=== PATIENT | female | born 1950 | race Caucasian/White ===

== ENCOUNTER → 2025-08-18 | Outpatient (CLI) | payer OTHER, SELFPAY ==
--- NOTE | 2025-08-18 10:16 | RAD_ITS ---
PROCEDURE: KNEE 3 VIEWS 08/18/2025 REASON FOR EXAM: RIGHT KNEE PAIN TECHNIQUE: Procedure Code: RADPAT Modality: DX Procedure: KNEE 3 VIEWS Laterality: Right COMPARISON: None FINDINGS: Bones: No fracture. No suspicious bone lesion. Joints: Normal alignment. Mild degenerative changes. Effusion: No effusion. Soft tissues: Soft tissues are unremarkable. Other: N/a RAD/Knee 3 Views IMPRESSION: NO EFFUSION ACUTE FRACTURE OR DISLOCATION. Reading Location: [facility]
--- NOTE | 2025-08-18 10:17 | RAD_ITS ---
PROCEDURE: WRIST 2 VIEWS 08/18/2025 REASON FOR EXAM: PAIN, FALL X 3 MONTHS TECHNIQUE: Procedure Code: RADWR2 Modality: DX Procedure: WRIST 2 VIEWS Laterality: Left COMPARISON: None FINDINGS: Bones: No acute fracture or dislocation Joints: Severe radiocarpal degenerative joint space narrowing. There is widening of the scapholunate interval. Mild base of thumb degenerative change. No erosions Soft tissues: Soft tissues are unremarkable. Other: N/a RAD/Wrist 2 Views IMPRESSION: 1. No acute fracture or dislocation. 2. Severe radiocarpal degenerative osteoarthritic change. 3. Significant widening of the scapholunate interval suggests underlying compl ete ligamentous tear/injury. 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 Could obtain a follow-up MRI for further characterization as carol summers. Reading Location: [facility]
== END | disposition home or self-care (01) ==
PROVIDERS: PCP Nurse Practitioner Family
DX: M25.532 Pain in left wrist (principal); M25.561 Pain in right knee
CPT/HCPCS: 73100; 73562

== ENCOUNTER → 2025-11-03 | Outpatient (CLI) | payer OTHER, SELFPAY ==
--- NOTE | 2025-11-03 11:07 | BI_ITS ---
EXAM: SCRN MAMM (CAD)W/ANNA BILAT DATE: 11/03/2025 CLINICAL HISTORY: F, Age 74 y/o , SCREENING TECHNIQUE: Procedure Code: [id number] Modality: MG Procedure: SCRN MAMM (CAD)W/ANNA BILAT COMPARISON: Prior exam(s) were compared FINDINGS: TISSUE DENSITY: The breasts are heterogeneously dense, which may obscure small masses. Bilateral Breast Mammographic Findings: No significant masses, calcifications or other abnormalities are identified. BI/SCRN MAMM (CAD)W/ANNA BILAT IMPRESSION: No mammographic evidence of malignancy. OVERALL FINAL ASSESSMENT BI-RADS 1: NEGATIVE. RECOMMENDATION: Routine annual follow-up in 1 Year Additional Recommendation none A letter with findings and recommendations will be mailed to the patient. Reading Location: [id number]
--- NOTE | 2025-11-03 11:30 | MRI_ITS ---
PROCEDURE: LOWER EXT JOINT ONLY (ROUTINE) 11/03/2025 REASON FOR EXAM: OTHER TEAR OF MEDIAL MENISCUS TECHNIQUE: Procedure Code: MRILEJ Modality: MR Procedure: LOWER EXT JOINT ONLY (ROUTINE) Multiplanar and multisequence images were obtained without IV contrast administration. COMPARISON: COMPARISON : FINDINGS: Menisci: Lateral meniscus intrasubstance degeneration with suspected small tear along the apical aspect of the tibial surface of the anterior body. Longitudinal tear along the tibial surface of the body to posterior horn of the medial meniscus with associated blunting and fraying. No parameniscal cyst. Ligaments and tendons: No cruciate or collateral ligament tear. No iliotibial band abnormality. No medial or lateral patellofemoral ligament/retinaculum tear. Mild patellar and quadriceps tendinosis. Mild popliteus tendinosis. Bones and soft tissues: Moderate effusion. No popliteal cyst. No prepatellar bursitis. Infrapatellar plica. Suprapatellar plica. Mild chondral thinning in the patella with mild periarticular bone edema. Chondral thinning and irregularity with areas to bone near the central trochlear groove, with periarticular bone edema. Chondral thinning and irregularity along both posterior lateral knee articular surfaces, with areas to bone and periarticular bone edema in the posterior lateral femoral condyle. Chondral thinning and irregularity along both medial knee articular surfaces, with areas to bone and periarticular bone edema in the posterior medial femoral condyle. Marginal osseous ridging about the weight-bearing compartments. No infrapatellar fat pad edema. Well-positioned patella. MRI/Lower Ext Joint Only (Routine) IMPRESSION: Both meniscal tears as described. 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 Moderate effusion. Plicae. Tendinosis. Reading Location: [facility]
[2025-11-03 13:15] LABS: AST(SGOT) 22 U/L (<=31); Alanine Aminotransfer ALT/SGPT 24 U/L (<=34); Albumin, Serum 4.1 g/dL (3.4-4.8); Alkaline Phosphatase 70 U/L (35-104); Anion Gap 9 (7-18); BUN 17 mg/dL (4-19); BUN/Creat Ratio 23.4 RATIO (10-20); Calcium,Total 9.4 mg/dL (7.6-11.0); Carbon Dioxide 25.0 mmol/L (20.0-29.0); Chloride 104 mmol/L (96-106); Cholesterol 238 mg/dL (<=200); Free T3 5.0 pg/mL (2.18-3.98); Globulin 2.7 g/dL (2.2-4.2); Glucose 104 mg/dL (70-99); Low Density Lipoprotein Calc. 122 mg/dL; Potassium 4.3 mmol/L (3.5-5.1); Triglycerides 268 mg/dL; Very Low Density Lipoprotein 54 mg/dL (5-40); Vitamin D,25 Hydroxy 82.2 ng/mL (30-100); cholesterol:hdl ratio screen 3.44
== END | disposition home or self-care (01) ==
PROVIDERS: PCP Nurse Practitioner Family
DX: S83.241A Other tear of medial meniscus, current injury, right knee, initial encounter (principal); X58.XXXA Exposure to other specified factors, initial encounter; E03.9 Hypothyroidism, unspecified; E55.9 Vitamin D deficiency, unspecified; Z12.31 Encounter for screening mammogram for malignant neoplasm of breast; Z13.1 Encounter for screening for diabetes mellitus; Z13.6 Encounter for screening for cardiovascular disorders
CPT/HCPCS: 36415; 73721; 77063; 77067; 80053; 80061; 82306; 83036; 84439; 84443; 84481